=== PATIENT | male | born 1970 | race African-American/Black ===

== ENCOUNTER 2022-09-16 12:10 | Outpatient (CLI) | payer OTHER, SELFPAY ==
--- NOTE | 2022-09-16 12:20 | CT_ITS ---
WS: [id number] CT NECK TECHNIQUE: Contrast-enhanced CT of the neck with coronal and sagittal reformatted images. CLINICAL INFORMATION: LOCALIZED SWELLING, MASS, LUMP,NECK COMPARISON: None. DLP: 244.[address] scans at [facility] use at least one of these dose optimization techniques: automated e xposure control; mA and/or kV adjustment per patient size (includes targeted exams where dose is matc hed to clinical indication); or iterative reconstruction. FINDINGS: Mild mucosal thickening ethmoid air cells. Sphenoid sinuses and maxillary sinuses are well aerated. M inimal mucosal thickening in the maxillary sinuses. Mastoid air cells are well aerated. Normal dietist ior nasopharynx. Normal parapharyngeal fat. No evidence of supraglottic or glottic mass. Normal subgl ottic airway. Slightly heterogeneous thyroid with a few tiny micronodules. Lung apices are well aerated. Parotid glands are normal. Normal submandibular glands. Mild spondyliti c changes cervical spine. No cervical lymphadenopathy. CT/CT neck w con* [id number] IMPRESSION: 1. No evidence of drainable abscess or fluid collection. 2. Mild mucosal thickening ethmoid air cells. Trace mucosal thickening in the maxillary sinuses. Mastoid air cells well aerated. 3. Normal posterior nasopharynx. No evidence of supraglottic or glottic mass. 4. No cervical lymphadenopathy. 5. Slightly heterogeneous thyroid with a few tiny micronodules. 6. No other suspicious findings.
[2022-09-16] MEDS: iohexol 350 mg/mL 500 mL Btl (per mL) IV (13:15)
== END 2022-09-16 12:11 | disposition home or self-care (01) ==
LOC: RAD 12:10
PROVIDERS: Visit Provider Specialist
DX: R22.1 Localized swelling, mass and lump, neck (principal)
CPT/HCPCS: 70491; Q9967

== ENCOUNTER → 2022-11-25 09:54 | Outpatient (BNVA) | payer OTHER, SELFPAY | PROVIDERS: Referring Provider Emergency Medicine Emergency Medical Services; Visit Provider Specialist | DX: M21.161 Varus deformity, not elsewhere classified, right knee (principal); S83.101A Unspecified subluxation of right knee, initial encounter; X58.XXXA Exposure to other specified factors, initial encounter | CPT/HCPCS: 73560; 73565; 99205 ==

== ENCOUNTER 2023-03-26 09:27 | Outpatient (CLI) | payer OTHER, SELFPAY ==
--- NOTE | 2023-03-26 09:38 | USCV_ITS ---
Luis Miguel Joseph Age: 52 Gender: M : 1970 Exam Date: 03/26/2023 09:47 Ordering Phys: Alvaro Sage DO Technologist: AFTAB Exam Location: [facility] [place] Indication: SURGERY CLEARANCE HX OF MURMUR BP: / HR: 46 Rhythm: Sinus Technical Quality: Adequate MEASUREMENTS (Male / Female) Normal Values 2D ECHO LV Diastolic Diameter PLAX 4.9 cm 4.2 - 5.9 / 3.9 - 5.3 cm LV Systolic Diameter PLAX 2.9 cm LV Chamber Size 4.7 cm IVS Diastolic Thickness 1.2 cm 0.6 - 1.0 / 0.6 - 0.9 cm IVS Systolic Thickness 1.7 cm LVPW Diastolic Thickness 1.7 cm 0.6 - 1.0 / 0.6 - 0.9 cm LVPW Systolic Thickness 2.0 cm RV Chamber Size 3.6 cm LVOT Diameter 2.0 cm LV Ejection Fraction 2D Teich 70.5 % LV Ejection Fraction MOD 2C 65.1 % LV Ejection Fraction 2C AL 66.2 % LA Diameter 3.6 cm LA Width 3.1 cm LA Height 3.2 cm RA Width 3.2 cm RA Height 3.8 cm Aorta at Sinotubular Diameter 2.8 cm IVC Diameter 1.7 cm M-MODE Aortic Annulus Diameter 3.3 cm LA Ao Ratio MM 1.3 MV E Point Septal Separation 0.8 cm DOPPLER AV Peak Velocity 155.0 cm/s LVOT Peak Velocity 99.0 cm/s AV Area Cont Eq vti 2.2 cm squared AV Area Cont Eq pk 2.1 cm squared MV Area PHT 3.5 cm squared Mitral E to A Ratio 1.3 MV E' Velocity 51.0 cm/s Mitral E to MV E' Ratio 6.4 Mitral E to LV E' Lateral Ratio 5.1 Mitral E to LV E' Septal Ratio 8.6 TR Peak Velocity 231.6 cm/s TR Peak Gradient 21.4 mmHg TR Mean Velocity 192.6 cm/s TR Mean Gradient 16.1 mmHg TR Velocity Time Integral 93.4 cm TV Peak E Velocity 64.0 cm/s Right Atrial Pressure 3.0 mmHg Pulmonary Artery Systolic Pressu 24.4 mmHg RV Acceleration Time 0.2 s RV Ejection Time 0.4 s RV AcT/ET 0.5 FINDINGS Left Ventricle Normal left ventricular size, systolic function and wall thickness, with no regional wall motion abnormalities. Normal diastolic function. Left ventricular ejection fraction is estimated at 60 %. Right Ventricle Normal right ventricular size and systolic function. Normal right ventricular systolic pressure. Right Atrium The right atrium is normal in size. Left Atrium The left atrium is normal in size. Mitral Valve Structurally normal mitral valve without significant stenosis or prolapse. There is no mitral regurgitation. Aortic Valve Structurally normal aortic valve without significant sclerosis or stenosis. There is no aortic regurgitation. Tricuspid Valve Structurally normal tricuspid valve. Trace tricuspid valve regurgitation. Pulmonic Valve Pulmonic valve not well visualized. Mild pulmonary valve regurgitation. Pericardium Normal pericardium without effusion. Aorta Normal ascending aorta dimension. IVC The inferior vena cava appears normal. CONCLUSIONS Normal left ventricular size, systolic function and wall thickness, with no regional wall motion abnormalities. Normal diastolic function. Left ventricular ejection fraction is estimated at 60 %. There are no prior echocardiogram studies to compare. Dr. Ludwig Ball MD (Electronically Signed) Final Date: 27 March 2023 08:44 S
== END 2023-03-26 09:28 | disposition home or self-care (01) ==
LOC: RAD 09:29
PROVIDERS: PCP Emergency Medicine Emergency Medical Services; Visit Provider Emergency Medicine Emergency Medical Services
DX: Z01.818 Encounter for other preprocedural examination (principal)
CPT/HCPCS: 93306

== ENCOUNTER 2023-06-07 16:41 | Outpatient (CLI) | payer OTHER, SELFPAY ==
--- NOTE | 2023-06-07 17:02 | CT_ITS ---
WS: [id number] CT LUMBAR SPINE, noncontrast. HISTORY: Chronic low back pain. TECHNIQUE: Contiguous 2.0 mm axial imaging are performed. Sagittal and coronal reformats are submitte d and reviewed. All CT scans at [facility] use at least one of these dose optimization techni ques: automated exposure control; mA and/or kV adjustment per patient size (includes targeted exams w here dose is matched to clinical indication); or iterative reconstruction. IV contrast: None DLP: 492.97 mGy.cm COMPARISON: None available. Very slight straightening of the normal lumbar lordosis. L3 and L4 retrolisthesis by 3 mm. No fractur es. Small hypertrophic osteophytes at all levels. L1-2: Mild annular disc bulging encroaching upon the subarticular recesses. L2-3: Mild annular disc bulging and osteophytic ridging. Disc encroachment upon the ventral thecal sa c and the subarticular recesses. Mild central, bilateral subarticular recess and foraminal stenosis. L3-4: Mild annular disc bulging with a small posterior vertebral body osteophyte contacting the ventr al thecal sac. Disc is slightly asymmetric extending to the RIGHT. Mild ligamentum flavum and facet a rthritis. Moderate central, bilateral subarticular recess and moderate to severe foraminal stenosis, LEFT greater than RIGHT. L4-5: Moderate annular disc bulging. Ligamentum flavum and facet arthritis. There is severe central, bilateral subarticular recess and foraminal stenosis. L5-S1: Diffuse annular disc bulging with a central protrusion contacting the ventral thecal sac and t he S1 nerve roots. Osteophytes contribute to moderate to severe bilateral foraminal stenosis. Atherosclerotic plaque in the aorta. RIGHT renal cyst. IMPRESSION: Multilevel areas of stenosis throughout the lumbar spine due to combination of osteophytes, annular d isc bulging, disc protrusions and facet arthritis. 1. L4-5: Severe central, bilateral subarticular recess and foraminal stenosis. 2. L5-S1: Moderate to severe bilateral foraminal stenosis. Mild central stenosis. The disc contacts t he S1 and L5 nerve roots bilaterally. 3. L2-3: Mild central, bilateral subarticular recess and foraminal stenosis. 4. L3-4: Moderate central, bilateral subarticular recess and moderate to severe foraminal stenosis, L EFT greater than RIGHT.
== END 2023-06-07 16:42 | disposition home or self-care (01) ==
PROVIDERS: PCP Emergency Medicine Emergency Medical Services; Visit Provider Emergency Medicine Emergency Medical Services
DX: M48.07 Spinal stenosis, lumbosacral region (principal); G89.29 Other chronic pain
CPT/HCPCS: 72131

== ENCOUNTER 2023-07-21 08:30 | Outpatient (RCR) | payer OTHER, SELFPAY | END 2023-08-15 23:59 | disposition home or self-care (01) | LOC: SPT 08:30 | PROVIDERS: PCP Emergency Medicine Emergency Medical Services; Visit Provider Emergency Medicine Emergency Medical Services | DX: M25.561 Pain in right knee (principal) | CPT/HCPCS: 97110; 97161 ==

== ENCOUNTER → 2023-08-04 15:53 | Outpatient (BNVA) | payer OTHER, SELFPAY | PROVIDERS: PCP Emergency Medicine Emergency Medical Services; Visit Provider Specialist | DX: Z96.651 Presence of right artificial knee joint; M17.31 Unilateral post-traumatic osteoarthritis, right knee | CPT/HCPCS: 73560; 73565; 99214 ==

== ENCOUNTER 2023-08-16 06:00 | Outpatient (RCR) | payer OTHER, SELFPAY | END 2023-09-07 23:59 | disposition home or self-care (01) | LOC: SPT 06:00 | PROVIDERS: PCP Emergency Medicine Emergency Medical Services; Visit Provider Emergency Medicine Emergency Medical Services | DX: M25.561 Pain in right knee (principal) | CPT/HCPCS: 97110 ==

== ENCOUNTER → 2023-08-23 15:31 | Outpatient (BNVA) | payer OTHER, SELFPAY | PROVIDERS: PCP Emergency Medicine Emergency Medical Services; Visit Provider Specialist | DX: M12.811 Other specific arthropathies, not elsewhere classified, right shoulder; M12.812 Other specific arthropathies, not elsewhere classified, left shoulder | CPT/HCPCS: 73030; 99214 ==

== ENCOUNTER 2023-08-24 08:24 | Outpatient (CLI) | payer OTHER, SELFPAY ==
--- NOTE | 2023-08-24 08:30 | MR_ITS ---
WS: [id number] MRI LUMBAR SPINE NONCONTRAST HISTORY: SPINAL STENOSIS OF LUMBAR REGION W/NEUROGENIC CLAUDICATION COMPARISON: None available. TECHNIQUE: Sagittal and axial multisequence imaging is submitted. Mild central cervical stenosis due to osteophyte and disc disease. Small central disc protrusion at T 3-4 contacts the ventral thecal sac. Straightening of the normal lumbar lordosis. Retrolisthesis of L2 and L3 by 2 mm. Disc spaces are very slightly narrowed and desiccated. No acute fracture. Conus terminates normally at L1-2 disc level. L1-L2: Mild annular disc bulging with a shallow LEFT paracentral disc protrusion. Bilateral facet leonor nt arthritis and ligamentum flavum arthritis. Mild disc contact on the traversing L2 nerve roots. L2-L3: Moderate annular disc bulging with encroachment upon the ventral thecal sac. Disc contacts the traversing L3 nerve roots with moderate facet and ligamentum flavum hypertrophy. Shallow RIGHT alicia inal disc protrusion. Mild central and bilateral subarticular recess stenosis. L3-L4: Diffuse annular disc bulging asymmetrically extending to the RIGHT. Very shallow central disc protrusion. Moderate ligamentum flavum and facet arthritis. Fluid in the facet joints. There is disc contact on the L3 and L4 nerve roots, traversing and exiting. Moderate central, bilateral subarticula r recess and foraminal stenosis. L4-L5: Moderate annular disc bulging with moderate central disc protrusion extends just slightly caud ad to the disc level. Moderate ligamentum flavum and facet arthritis. Disc contacts the traversing L5 nerve roots. Moderate central and bilateral subarticular recess and RIGHT foraminal stenosis. Severe LEFT foraminal stenosis with disc contacting the exiting L4 nerve root. L5-S1: Large central disc protrusion contacting the S1 nerve roots. Moderate facet joint arthritis. F luid in the facet joints. Moderate bilateral foraminal stenosis. There is disc and osteophyte contact ing the exiting L5 nerve roots. Bilateral renal cysts. The largest cyst is 2.5 cm RIGHT kidney. IMPRESSION: 1. L1-2: Shallow LEFT paracentral disc protrusion. Mild disc contact on the traversing L2 nerve root s. 2. L2-3: Mild central and bilateral subarticular recess stenosis with a shallow RIGHT foraminal disc protrusion. 3. L3-4: Moderate central, bilateral subarticular recess and foraminal stenosis. Asymmetric disc bul ging to the RIGHT with a shallow disc protrusion. Disc contacts the L3 and L4 nerve roots. 4. L4-5: Moderate central, bilateral subarticular recess and RIGHT foraminal stenosis. Severe LEFT f oraminal stenosis with disc contacting the exiting L4 nerve root. 5. L5-S1: Moderate bilateral foraminal stenosis and central stenosis. There is a large central disc protrusion contacting the S1 nerve roots. Additional encroachment upon the exiting L5 nerve roots. 6. Bilateral renal cyst.
== END 2023-08-24 08:25 | disposition home or self-care (01) ==
LOC: RAD 08:25
PROVIDERS: PCP Emergency Medicine Emergency Medical Services; Visit Provider Nurse Practitioner Family
DX: M48.062 Spinal stenosis, lumbar region with neurogenic claudication (principal); M51.27 Other intervertebral disc displacement, lumbosacral region; M48.07 Spinal stenosis, lumbosacral region
CPT/HCPCS: 72148

== ENCOUNTER 2023-09-10 08:15 | Outpatient (CLI) | payer OTHER, SELFPAY ==
--- NOTE | 2023-09-10 08:45 | MR_ITS ---
WS: [id number] MRI LEFT SHOULDER HISTORY: shoulder pain COMPARISON: Radiograph 08/23/2023 TECHNIQUE: Multiplanar sequences of the shoulder joint are submitted. Moderate AC joint arthritis. Small amount of edema and erosions in the distal clavicular head. There is widening of the AC joint. Abnormal configuration and abnormal signal within the acromion. There is significant subacromial impingement with the humeral head abutting the acromion. Biceps tendon is no t identified in the bicipital groove. No os acromion. There is additional soft tissue edema extending along the superficial superior shoulder which is probably related to AC joint arthritis. High riding humeral head with moderate narrowing of the glenohumeral joint. Edema and subchondral cys tic changes are noted in the posterior lateral humeral head. Moderate size joint effusion. Numerous l oose bodies are noted within the joint effusion. Loose bodies are noted in the fluid extending along the supraspinatus tendon and also within the axillary pouch. There is a torn retracted supraspinatus tendon large amount of fluid extending along the supraspinatu s tendon sheath. There is marked atrophy of the supraspinatus muscle. There is also atrophy of the in fraspinatus muscle. Infraspinatus tendon is also torn and retracted. There is fluid extending into th e rotator cuff interval. There are several calcific densities surrounding the superior humeral head. These larger calcific deposits may be from calcific tendinitis. No labral abnormality. IMPRESSION: 1. Complete supraspinatus and infraspinatus tendon tears with retraction and muscle atrophy. 2. Moderate AC joint arthritis. 3. Abnormal acromion. Sclerotic appearance to the acromion with significant subacromial impingement upon the humeral head. 4. High riding humeral head. 5. Moderate size joint effusion with numerous loose bodies within the joint effusion.
--- NOTE | 2023-09-10 09:30 | MR_ITS ---
WS: [id number] MRI RIGHT SHOULDER HISTORY: shoulder pain COMPARISON: Radiograph 08/23/2023 TECHNIQUE: Multiplanar sequences of the shoulder joint are submitted. Moderate AC joint arthritis. Joint space narrowing. Small cystic collections extends superior from th e AC joint. There is encroachment upon the myotendinous portion of the supraspinatus. Marked subacrom ial impingement. No os acromion. Biceps tendon is identified in the bicipital groove. There is a spli t tear in the biceps tendon. Moderate narrowing of the glenohumeral joint. Humeral head is high riding. Marked atrophy of the supraspinatus muscle with no edema. There is a full-thickness tear involving th e distal supraspinatus tendon. Tendon is retracted just medial to the medial portion of the humeral h ead. Infraspinatus is negative. Subscapularis tendon is intact. Small amount of fluid adjacent to the superior labrum. There is a small 4 mm possible loose body within the fluid. Although the labrum enid ears frayed no tear is identified. IMPRESSION: 1. Complete tear supraspinatus tendon with retraction just medial to the mid humeral head. 2. Severe AC joint arthritis with encroachment towards the rotator cuff and marked subacromial impin gement. 3. High riding humeral head. 4. Small joint effusion and possible 4 mm loose body adjacent to the superior labrum. 5. No labral tear is identified. 6. Severe atrophy subscapularis muscle. 7. Split tear in the biceps tendon.
== END 2023-09-10 08:16 | disposition home or self-care (01) ==
LOC: RAD 08:15
PROVIDERS: PCP Emergency Medicine Emergency Medical Services; Visit Provider Specialist
DX: M75.121 Complete rotator cuff tear or rupture of right shoulder, not specified as traumatic (principal); M75.122 Complete rotator cuff tear or rupture of left shoulder, not specified as traumatic; M19.011 Primary osteoarthritis, right shoulder; M19.012 Primary osteoarthritis, left shoulder; M75.41 Impingement syndrome of right shoulder; M75.42 Impingement syndrome of left shoulder; M25.411 Effusion, right shoulder; S46.211A Strain of muscle, fascia and tendon of other parts of biceps, right arm, initial encounter; X58.XXXA Exposure to other specified factors, initial encounter; M24.012 Loose body in left shoulder; M25.412 Effusion, left shoulder
CPT/HCPCS: 73221

== ENCOUNTER → 2023-09-27 14:32 | Outpatient (BNVA) | payer OTHER, SELFPAY | PROVIDERS: PCP Emergency Medicine Emergency Medical Services; Referring Provider Emergency Medicine Emergency Medical Services; Visit Provider Specialist | DX: M12.811 Other specific arthropathies, not elsewhere classified, right shoulder (principal); M12.812 Other specific arthropathies, not elsewhere classified, left shoulder; M75.121 Complete rotator cuff tear or rupture of right shoulder, not specified as traumatic; M75.122 Complete rotator cuff tear or rupture of left shoulder, not specified as traumatic | CPT/HCPCS: 99215 ==

== ENCOUNTER 2024-10-09 08:23 | Outpatient (CLI) | payer OTHER, SELFPAY ==
--- NOTE | 2024-10-09 08:25 | US_ITS ---
WS: [id number] ULTRASOUND RENAL TECHNIQUE: Ultrasound examination of both kidneys. CLINICAL INFORMATION: HX OF RENAL CYST/REPEAT US FOR SURVEILLANCE OF CYST COMPARISON: MRI lumbar 2023 FINDINGS: 2 simple RIGHT renal cysts described below. These are similar in appearance to the prior lumbar spine MRI 08/24/2023. No other comparisons. RIGHT: Right kidney is normal in size and appearance. Echogenicity: Normal. Cortical thickness: 1.0 cm; Normal. Hydronephrosis: None. Perinephric fluid: None. Right kidney measures: 11.4 cm x 6.0 cm x 7.0 cm. LEFT: Left kidney is normal in size and appearance. Echogenicity: Normal. Cortical thickness: 1.1 cm; Normal. Hydronephrosis: None. Perinephric fluid: None. Left kidney measures: 11.5 cm x 5.1 cm x 5.0 cm. Normal visualized aorta. Normal bladder. US/US renal BI* [id number] IMPRESSION: 1. Simple RIGHT renal cysts mid RIGHT kidney measuring 3.2 x 2.7 x 3.2 cm and smaller cyst mid RIGHT kidney measuring 1.5 x 1.7 x 1.7 cm. 2. No hydronephrosis in either kidney.
== END 2024-10-09 08:24 | disposition home or self-care (01) ==
LOC: RAD 08:24
PROVIDERS: PCP Nurse Practitioner Family; Visit Provider Nurse Practitioner Family
DX: Z01.89 Encounter for other specified special examinations (principal); N28.1 Cyst of kidney, acquired
CPT/HCPCS: 76770

== ENCOUNTER 2025-06-27 14:58 | Outpatient (CLI) | payer OTHER, SELFPAY ==
--- NOTE | 2025-06-27 15:03 | CTR_ITS ---
PROCEDURE INFORMATION: Exam: CT Head Without Contrast Exam date and time: 06/27/2025 3:09 PM Age: 54 years old Clinical indication: Memory loss TECHNIQUE: Imaging protocol: Computed tomography of the head without contrast. Radiation optimization: All CT scans at this facility use at least one of these dose optimization techniques: automated exposure control; mA and/or kV adjustment per patient size (includes targeted exams where dose is matched to clinical indication); or iterative reconstruction. COMPARISON: CT neck w con* [id number] 09/16/2022 12:52 PM RADIATION DOSE METRICS: Total DLP (mGy-cm): 1037.48 FINDINGS: Brain: No acute intracranial hemorrhage. No mass effect or midline shift. Patchy areas of periventricular and subcortical white matter hypoattenuation, likely the sequela of microvascular ischemic changes. No loss of ferrell-white differentiation to suggest an acute infarct. Cerebral ventricles: No ventriculomegaly. Paranasal sinuses: Patchy mucosal thickening of the paranasal sinuses. No air-fluid levels. Mastoid air cells: Visualized mastoid air cells are well aerated. Bones: Unremarkable. No acute fracture. Soft tissues: Unremarkable. CT/CT head wo con* [id number] IMPRESSION: 1. No acute intracranial hemorrhage. 2. Patchy periventricular and subcortical white matter hypodensities, nonspecific but most commonly the sequela of chronic microvascular ischemic changes.
== END 2025-06-27 14:59 | disposition home or self-care (01) ==
LOC: RAD 14:59
PROVIDERS: PCP Nurse Practitioner Family; Visit Provider Family Medicine Geriatric Medicine
DX: R41.3 Other amnesia (principal); J34.89 Other specified disorders of nose and nasal sinuses; R93.0 Abnormal findings on diagnostic imaging of skull and head, not elsewhere classified
CPT/HCPCS: 70450

== ENCOUNTER 2025-07-10 17:09 | Emergency (ER) | payer OTHER, SELFPAY ==
--- OUTSIDE RECORDS SUMMARY | 2025-07-10 17:15 | XMS_ITS | Clinical Summary ---
Author Organization [facility] Address [address] [place] [address] Phone Care Team Providers Care Building Coordinator Name Role Phone Unavailable Primary Care Provider Unavailabl e Allergies Active Allergy Reactions Criticality Noted Date Comments Chlorthalidone Unknown 10/14/2022 Dapsone Unknown 10/23/2010 Diclofenac Unknown 10/14/2022 Diclofenac Sodium Unknown 07/10/2022 Hydrochlorothiazide Unknown 01/01/2022 Penicillins Unknown 07/10/2022 Sulfa (Sulfonamide Antibiotics) Unknown 01/14 Medications acetaminophen 325 mg tablet Take 650 mg by mouth every 6 hours as needed. Active amLODIPine 10 mg tablet Take 10 mg by mouth daily. Active cholecalciferol (vitamin D3) 50 mcg (2,000 unit) capsule Take 2,000 Units by mouth daily. Active bictegravir-emtr icitabine-tenofo vir alafenam (Biktarvy) 50-200-25 mg Tablet Take 1 Tablet by mouth daily. Active Active Problems Problem Noted Date Diagnosed Date Asymptomatic HIV infection, with no history of HIV-related illness 07/26/2023 Encounter for screening for cardiovascular disor ders 07/26/2023 Hypertension 07/26/2023 Lumbar radiculopathy 07/26/2023 Overview (07/26/2023): Jun 15, 2023 Entered By: TASHA MADRIGAL Comment: Foraminal stenosis and boldging disc with nerve root impigement on CT 05/2023. Depressive disorder 07/26/2023 Unspecified osteoarthritis, unspecified site 06/2023 Family History Medical History Relation Name Comments Colon Cancer Neg Hx Social History Tobacco Use Types Packs/Day Years Used Date Smoking Tobacco: Never Tobacco Cessation:Counseling Given: Not Answered Feeling Safe Answer Date Recorded Are you in a relationship wi th someone who hurts you emotionally and/or physically? 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 Gender Identity Not on file Sexual Orientation Not on file Last Filed Vital Signs Vital Sign Reading Time Taken Comments Blood Pressure 120/68 09/22/2023 10:42 AM BUNG DRIVER Pulse 64 10/21/2022 3:03 PM BUNG DRIVER Temperature 36 C (96.8 F) 10/21/2022 3:01 PM BUNG DRIVER Respiratory Rate 20 10/21/2022 3:03 PM BUNG DRIVER Oxygen Saturation 96% 10/21/2022 3:03 PM BUNG DRIVER Inhaled Oxygen Concentration - - Weight 95.3 kg (210 lb) 09/22/2023 10:42 AM BUNG DRIVER Height 170.2 cm (5' 7 ) 09/22/2023 10:42 AM BUNG DRIVER Body Mass Index 32.89 09/22/2023 10:42 AM BUNG DRIVER Plan of Treatment Health Maintenance Due Date Last Done Comments FIT-DNA Q 3 years 2014 FIT/FOBT Q 1 year 2014 Flex Sig/CT Colonography Q 5 years 2014 INFLUENZA VACCINE (#1) 2025 , 07/04/2020, 09/20/2019, Additional history exists COLORECTAL SCREENING 10/21/2032 10/21/2022 Colorectal Cancer Screening 10/21/2032 DTAP/TDAP/TD VACCINES (3 - T d or Tdap) 07/16/2033 07/16/2023, 10/17/2013, 01/20/2007 HEPATITIS B VACCINES Completed 10/17/2013, 01/24/2013, 08/02/2012 ZOSTER VACCINE Completed 06/20/2022, 1110/2021, 07/09/2021, Additional history exists Medical Devices Implanted Type Area Junior Account Executive Device Identifier Shelf Expiration Date Model / Serial / Lot [employer]
--- NOTE | 2025-07-10 17:19 | ECG_ITS ---
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 Measurements Intervals [place] Rate: 66 P: 67 [place]: 190 QRS: 35 QRSD: 111 T: 40 QT: 391 QTc: 412 Interpretive Statements SINUS RHYTHM LEFT ATRIAL ENLARGEMENT [-0.15mV P-WAVE IN V1/V2] INCOMPLETE RIGHT BUNDLE BRANCH BLOCK [90+ ms QRS DURATION, TERMINAL R IN V1/V2, 40+ ms S IN I/aVL/V4/V5/V6] No previous ECG available for comparison Electronically Signed On 07-12-2025 17:47:48 PEWTER FINISHER by Marti Scales M.D. [email or web address]
--- NOTE | 2025-07-10 17:19 | CTR_ITS ---
PROCEDURE INFORMATION: Exam: CT Head Without Contrast Exam date and time: 07/10/2025 5:25 PM Age: 54 years old Clinical indication: Stroke-like symptoms; Altered mental status/memory loss; Additional info: Symptoms of acute stroke TECHNIQUE: Imaging protocol: Computed tomography of the head without contrast. Radiation optimization: All CT scans at this facility use at least one of these dose optimization techniques: automated exposure control; mA and/or kV adjustment per patient size (includes targeted exams where dose is matched to clinical indication); or iterative reconstruction. Other technique: STROKE PROTOCOL was implemented. COMPARISON: CT head wo con* [id number] 06/27/2025 3:09 PM RADIATION DOSE METRICS: Total DLP (mGy-cm): 1207.35 FINDINGS: Brain: No midline shift. Ventricles, cisterns, and sulci are normal. No mass, acute infarct, hemorrhage, or extraaxial fluid collection. Cerebral ventricles: No ventriculomegaly. Paranasal sinuses: Visualized sinuses are unremarkable. No fluid levels. Mastoid air cells: Visualized mastoid air cells are well aerated. Bones: Unremarkable. No acute fracture. Soft tissues: Unremarkable. CT/CT head thrombolytic [id number] IMPRESSION: No acute intracranial abnormality. ASSESSMENT: ASPECTS ([place]le Stroke Program Early CT Score) is 10.
[2025-07-10 17:28] VITALS: BP 165/78; PULSE 66; RESP 17; TEMP 36.8; O2SAT 98
[2025-07-10 17:31] LABS: Hematocrit 47.2 % (37-53); Hemoglobin 15.00 g/dL (11.27-16.99); Mean Corpuscular HGB Conc 31.8 g/dL (30-55); Mean Corpuscular Hemoglobin 25.0 pg (27-33); Mean Corpuscular Volume 78.5 fl (82-101); Nucleated Red Blood Cells % 0 %; Platelet Count 211 10^3/cmm (157-399); Red Blood Count 6.01 10^6/uL (3.85-5.65); White Blood Count 5.96 10^3/uL (3.29-11.43)
[2025-07-10 17:48] LABS: INR 1.03 (0.8-1.2); Prothrombin Time 14.20 SECONDS (12.1-14.9)
[2025-07-10 17:49] LABS: Partial Thromboplastin Time 27.2 SECONDS (23.9-36.7)
--- NOTE | 2025-07-10 17:50 | ED_ITS ---
HPI - Altered Mental Status 2 General: Chief Complaint: Altered Mental Status Stated Complaint: stroke like symptoms Time Seen by Provider: 07/10/25 17:18 Source: patient and family Mode of arrival: ambulatory Limitations: no limitations History of Present Illness: 54-year-old male is here with state s that she had called afternoon and he was slurring his words. States that when she got home he is still slurring his words. Confusion is having a hard time walking. States that the last thing she saw him was this morning normal at 7:30 AM. Patient here is answer my questions appropriately is ANO x 4. Do not notice any slurring currently. Related Data Home Medications ?Medication ?Instructions ?Recorded ?Confirmed bictegravir 50 mg-emtricitabine 1 tab PO DAILY 3 09/27/23 200 mg-tenofovir alafenam 25 mg tablet (Biktarvy) cholecalciferol (vitamin D3) 1,250 PO 11/25/22 4 mcg (50,000 unit) capsule Allergies Allergy/AdvReac Type Severity Reaction Status Date / Time Penicillins Allergy ADR-Itching Verified 07/10/25 17:31 PFS ED 2 PFSH: Social History Smoking and tobacco/nicotine status: never used tobacco/nicotine Second hand smoke exposure: No Alcohol intake: current Alcohol intake frequency: 0-2 Drinks per Day Alcohol type: beer Substance/Drug Use: never Adopted: No Caregiver/support person: Yes Lives independently: No Household members: spouse Housing: House Marital status: Number of children: 2 Highest education level completed: High School Graduate service: Yes status: Discharged branch: [employer] Current occupational status: unemployed Current occupational exposures/hazards: No Pets and animals: Yes Sexually active: Yes Do you think of yourself as: Straight/Heterosexual Current gender identity: Male Special dylan needs: No Agree to transfusion: Yes Physical Exam 2 Const: COMMON NORMALS: patient oriented x3 HENMT: COMMON NORMALS: normocephalic and atraumatic HEAD & SCALP: n ormocephalic and atraumatic Eye: COMMON NORMALS: Equal, round and reactive pupils present and EOMs intact bilaterally PUPIL: Yes Equal, round and reactive pupils present Neck/C-Spine: COMMON NORMALS: full ROM and supple Chest: COMMONS NORMALS: normal inspection of the chest and normal palpation of entire chest wall Resp: COMMON NORMALS: normal respiratory effort, No retractions, No use of accessory muscles and clear to auscultation bilaterally AUSCULTATION: clear to auscultation bilaterally Cardio: COMMON NORMALS: regular rate, regular rhythm and No murmurs present (Cardio) RATE: regular rate RHYTHM: regular rhythm GI: COMMON NORMALS: Normal to inspection, nondistended, normoactive bowel sounds present, Soft to palpation, non-tender and no masses PALPATION: Yes Soft to palpation Extremity: COMMON NORMALS: normal to inspection and full ROM Neuro: COMMON NORMALS: patient oriented x3, moves all extremities and no focal motor deficits Psych: COMMON NORMALS: mental status grossly normal, Normal thought process present and cooperative THOUGHT PROCESS: Normal thought process present Skin: COMMON NORMALS: no rashes or lesions noted and no wounds GENERAL SKIN EXAM: no rashes or lesions noted Course 2 Vital Signs: Vital signs: Vital Signs Temperature 98.2 F 07/10/25 17:28 Pulse Rate 66 07/10/25 17:28 Respiratory Rate 17 07/10/25 17:28 Blood Pressure 165/78 07/10/25 17:28 Pulse Oximetry 98 07/10/25 17:28 MDM - Altered Mental Status Medical Decision Making 54-year-old male who presented here with some slurred speech and staggering gait differential includes subarachnoid hemorrhage, CVA. On my neuroexam here his NIH was 0. Head CT showed no signs of stroke labs showed no significant abnormality except for his alcohol level is alpha level here is 245. Patient's symptoms are likely from him being intoxicated. He has no signs of acute stroke. He stable for discharge at this time with family did go over findings with him and family he has follow-up with PCP in 4 to 6 days or return if worsening they understand agree to plan. Medical Records I reviewed the patient's medical records. Lab Data I reviewed the patient's lab results. 07/10/25 17:27 07/10/25 17:[address] 07/10/25 17:19 IMPRESSION: No acute intracranial abnormality. ASSESSMENT: ASPECTS (Annabelle Stroke Program Early CT Score) is 10. ADDENDUM: 07/10/25 7001 THIS REPORT CONTAINS FINDINGS THAT MAY BE CRITICAL TO PATIENT CARE. The findings were verbally communicated via telephone conference with MARRY ROMERO at 5:37 PM [employer]ER on 07/10/2025. The findings were acknowledged and understood. Laboratory Results WBC 5.96 10^3/uL (3.29-11.43) 07/10/25 17: RBC 6.01 10^6/uL (3.85-5.65) H 07/10/25 17: Hgb 15.00 g/dL (11.27-16.99) 07/10/25 17: Hct 47.2 % (37-53) 07/10/25 17: MCV 78.5 fl (82-101) L 07/10/25: MCH 25.0 pg (27-33) L 07/10/25: MCHC 31.8 g/dL (30-55) 07/10/25: RDW 15.0 % (12.1-15.1) 07/10/25: Plt Count 211 10^3/cmm (157-399) 07/10/25: MPV 9.6 fL (7.4-10.4) 07/10/25: Neut % (Auto) 51.6 % 07/10/25: Lymph % (Auto) 36.2 % 07/10/25: [place] % (Auto) 9.4 % 07/10/25 17: Eos % (Auto) 1.8 % 07/10/25: Baso % (Auto) 0.7 % 07/10/25: Neut # (Auto) 3.07 10^3/uL (1.8-7.7) 07/10/25 17: Lymph # (Auto) 2.2 10^3/uL (0.8-4.8) 07/10/25: [place] # (Auto) 0.6 10^3/uL (0.2-0.9) 07/10/25: Eos # (Auto) 0.1 10^3/uL (0.0-0.8) 07/10/25 17: Baso # (Auto) 0.0 10^3/uL (0.0-0.1) 07/10/25:27 Nucleated RBC % (auto) 0 % 07/10/25 17: Nucleated RBCs # 0.0 /100WBC 07/10/25 17: PT 14.20 SECONDS (12.1-14.9) 07/10/25 17: INR 1.03 (0.8-1.2) 07/10/25 17: APTT 27.2 SECONDS (23.9-36.7) 07/10/25 17: Sodium 144 mmol/L (136-145) 07/10/25 17: Potassium 3.7 mmol/L (3.5-5.1) 07/10/25 17: Chloride 108 mmol/L (98-107) H 07/10/25 17: Carbon Dioxide 25 mmol/L (22-29) 07/10/25 17: Anion Gap 14.7 (5-19) 07/10/25 17: BUN 10 mg/dL (6-20) 07/10/25 17: Creatinine 1.1 mg/dL (0.7-1.2) 07/10/25 17: GFR Calculation 84.1 mL/min (90-130) L 07/10/25 17: Glucose 92 mg/dL (65-115) 07/10/25 17: POC Glucose 86 mg/dL (70-110) 07/10/25 17:24 Calculated Osmolality 297 mOsm/kg (285-295) H 07/10/25 17: Calcium 9.0 mg/dL (8.5-10.5) 07/10/25 17: Total Bilirubin 0.4 mg/dL (0.15-1.2) 07/10/25 17: AST 30 U/L (0-40) 07/10/25 17: ALT 28 U/L (0-41) 07/10/25 17: Alkaline Phosphatase 109 U/L (40-130) 07/10/25 17: Total Protein 8.2 g/dL (6.6-8.7) 07/10/25 17: Albumin 4.6 g/dL (3.5-5.2) 07/10/25 17: Globulin 3.6 g/dL (1.3-4.6) 07/10/25 17: Urine Color Yellow (Yellow) 07/10/25 17:48 Urine Appearance Clear (CLEAR) 07/10/25 17:48 Urine pH 6.0 (5-7) 07/10/25 17:48 Ur Specific [place] 1.002 (1.005-1.030) L 07/10/25 17:48 Urine Protein Negative (Negative) 07/10/25 17:48 Urine Glucose (UA) Negative (Normal) 07/10/25 17:48 Urine Ketones Negative (Negative) 07/10/25 17:48 Urine Blood Negative (Negative) 07/10/25 17:48 Urine Nitrate Negative (Negative) 07/10/25 17:48 Urine Bilirubin Negative (Negative) 07/10/25 17:48 Urine Urobilinogen 0.2 mg/dL (Negative) 07/10/25 17:48 Ur Leukocyte Esterase Negative (Negative) 07/10/25 17:48 Urine RBC 0-2 /hpf (0-2) 07/10/25 17:48 Urine WBC 0-5 /hpf (0-5) 07/10/25 17:48 Ur Squamous Epith Cells 0-5 /hpf (0-5) 07/10/25 17:48 Amorphous Sediment Not Reportable 07/10/25 17:48 Urine Bacteria None seen /hpf (NONE) 07/10/25 17:48 Hyaline Casts 0-4 /lpf H 07/10/25 17:48 Urine Opiates Screen Negative ng/mL (Negative) 07/10/25 17:48 Ur Barbiturates Screen Negative ng/mL (Negative) 07/10/25 17:48 Ur Phencyclidine Scrn Negative ng/mL (Negative) 07/10/25 17:48 Ur Amphetamines Screen Negative ng/mL (Negative) 07/10/25 17:48 U Benzodiazepines Scrn Negative ng/mL (Negative) 07/10/25 17:48 Urine Cocaine Screen Negative ng/mL (Negative) 07/10/25 17:48 U Marijuana (THC) Screen Negative ng/mL (Negative) 07/10/25 17:48 Ethyl Alcohol 245 mg/dL (0-10) H 07/10/25 17:27 All radiology interpretation(s) finalized by discharge EKG Data EKG 1: I personally reviewed and interpreted this EKG as follows: EKG interpretation date: 07/10/25 EKG interpretation time: 17:39 Interpretation: nsr hr [address] elevation qrs 111 qtc 405 Discharge Plan Discharge Patient Disposition: Home Clinical Impression: Alcohol intoxication Condition: Stable Prescriptions: No Action Biktarvy 50-200-25 mg tablet 1 tab PO DAILY cholecalciferol (vitamin D3) 1,250 mcg (50,000 unit) capsule PO Discharge Orders: Discharge ED (Routine); Ordered 07/10/25 Ordered By: Marry Romero Referrals: Tree Hassan MD [Primary Care Provider, [facility]] - 4-7 days Discharge Diet: Advance as tolerated Discharge Activity: Resume usual activity Patient Instructions: Alcohol Intoxication (ED) Print Language: Beninese Coding Level of Care Code ED Livestock Rancher for Stormy Angulo
[2025-07-10 17:53] LABS: Alanine Aminotransferase 28 U/L (0-41); Albumin Level 4.6 g/dL (3.5-5.2); Alkaline Phosphatase 109 U/L (40-130); Anion Gap 14.7 (5-19); Aspartate Amino Transferase 30 U/L (0-40); Blood Urea Nitrogen 10 mg/dL (6-20); Calcium 9.0 mg/dL (8.5-10.5); Carbon Dioxide 25 mmol/L (22-29); Chloride 108 mmol/L (98-107); Globulin 3.6 g/dL (1.3-4.6); Glucose 92 mg/dL (65-115); Osmolality Calculated 297 mOsm/kg (285-295); Potassium 3.7 mmol/L (3.5-5.1); Sodium 144 mmol/L (136-145); Total Protein 8.2 g/dL (6.6-8.7)
[2025-07-10 18:15] LABS: Alcohol Level 245 mg/dL (0-10)
[2025-07-10 18:32] LABS: Glucose Urine UA Negative (Normal); Nitrate Urine Negative (Negative); Specific Gravity, Urine 1.002 (1.005-1.030)
[2025-07-10 18:34] LABS: Add Urine Microscopic? YES
[2025-07-10 18:38] LABS: PCP Screen Urine Negative (Negative)
[2025-07-10 19:02] VITALS: BP 111/68; PULSE 61; O2SAT 96
== END 2025-07-10 19:03 | disposition home or self-care (01) ==
PROVIDERS: Emergency Provider Emergency Medicine; PCP Family Medicine Geriatric Medicine
DX: F10.129 Alcohol abuse with intoxication, unspecified (principal); Y90.8 Blood alcohol level of 240 mg/100 ml or more
CPT/HCPCS: 36415; 36416; 70450; 80053; 80306; 80307; 81001; 82962; 85025; 85610; 85730; 93005; 99284